=== PATIENT | female | born 1965 | race Caucasian/White ===

== ENCOUNTER 2017-12-01 08:13 | Day surgery (SDC) | END 2017-12-01 13:35 | disposition home or self-care (01) ==

== ENCOUNTER 2018-12-29 22:20 | Emergency (ER) | payer OTHER ==
[~2018-12-29] VITALS: Wt 87.2 kg
[~2018-12-29 22:20] MED LIST: HYDR25TA6 PO
[2018-12-29 22:22] VITALS: BP 120/58
[2018-12-30] MEDS ORDERED: ALBUTEROL 0.083% (NEB) 2.5 MG/3 ML AMP HHN STA (00:18)
--- NOTE | 2018-12-30 00:18 | ERD ---
ER Documentation Chief Complaint Chief Complaint COUGH, BODY ACHES, FEVER X'S 2 DAYS HPI This is a 53-year-old female presents emergency department with complaints of productive cough and fever for about 2 days. The son stated that he gave Tamiflu today. Son is insisting influenza test and chest x-ray. LMP: . Denies headache, head injury, loss of consciousness, dizziness, neck pain, neck stiffness, throat pain, difficulty swallowing, difficulty breathing lying flat, shoulder pain, chest pain, back pain, abdominal pain, nausea, vomiting, constipation, diarrhea, urinary symptoms, or possibility being , loss of bowel and bladder control, trauma, injury, falls, difficulty walking due to pain, numbness or tingling sensation, calf pain, recent travel, recent major surgery in the last 3 weeks, calf pain, recent long travel, recent exposure to any illness, recent antibiotic use in the last 3 months, fever, chills, seizures. Past medical history: Surgical history: Social: Denies smoking, use of alcoholic beverages, use of illegal drugs. ROS All systems reviewed and are negative except as per history of present illness. Medications Home Meds Active Scripts Acetaminophen* (Tylophen*) 500 Mg Capsule, 1 CAP PO Q6H PRN for PAIN AND OR ELEVATED TEMP, #20 CAP Prov:MYRTLESOPHIAMARK 12/30/18 Albuterol Sulfate* (Proair HFA*) 8.5 Gm Hfa.aer.ad, 2 PUFF INH Q4 PRN for WHEEZING, #1 INHALER Prov:CARMELODAVIDSONMARK 12/30/18 Benzonatate* (Tessalon Perle*) 100 Mg Capsule, 100 MG PO Q8H PRN for COUGH, #15 CAP Prov:MARK BARTHOLOMEW 12/30/18 Azithromycin* (Zithromax*) 250 Mg Tablet, 250 MG PO .ZPACK DIRECTED, #6 TAB TAKE 500 MG (2 TABS) THE FIRST DAY THEN 250 MG (1 TAB) DAYS 2-5 Prov:CARMELODAVIDSONMARK 12/30/18 Reported Medications Hydrochlorothiazide* (Hydrochlorothiazide*) 25 Mg Tab, 25 MG PO DAILY, #30 TAB 12/01/17 Allergies Allergies: Coded Allergies: No Known Allergy (Unverified , 12/01/17) PMhx/Soc History of Surgery: Yes (C SECTION X 1) Anesthesia Reaction: No Hx Neurological Disorder: No Hx Respiratory Disorders: No Hx Cardiac Disorders: Yes (HTN) Hx Psychiatric Problems: No Hx Miscellaneous Medical Probl: No Hx Alcohol Use: No Hx Substance Use: No Hx Tobacco Use: No Smoking Status: Never smoker Physical Exam Vitals Physical Exam Const: No acute distress Head: Atraumatic Eyes: Normal Conjunctiva ENT: Normal External Ears, Nose and Mouth. Bilateral ears: TMs are not erythematous. No bleeding. No tenderness. Nose: Midline. There is no frontal or maxillary sinus tenderness palpation. Throat: Uvula is midline in its place. Tonsils are +1 with redness but no exudates. Tolerating secretions. Patent airway. Speaks full increase sentences. No tripoding. Neck: Full range of motion. No meningismus. No nuchal rigidity. No signs of meningeal irritation. Resp: No accessory muscle use in breathing. Mild wheezing bilaterally. Cardio: Regular rate and rhythm, no murmurs Abd: Soft, non tender, non distended. Normal bowel sounds Skin: No petechiae or rashes Back: No midline or flank tenderness Ext: No cyanosis, or edema Neur: Awake and alert. No neurological deficit. Psych: Normal Mood and Affect Results 24 hrs Current Medications Medications Dose Sig/Lali Start Time Status Last (Trade) Ordered Route PRN Stop Time Admin Dose Reason Admin Albuterol 5 mg ONCE STAT 12/30/18 DC 12/30/18 (Proventil HHN 00:18 00:47 0.083% (Neb)) 12/30/18 00:20 Ipratropium 0.5 mg ONCE ONCE 12/30/18 DC 12/30/18 [place] [facility] 00:30 00:47 (Atrovent 12/30/18 00:31 0.02% (Neb)) Procedures/MDM Diagnostic tests: Influenza a and B: Negative for influenza A. Negative for influenza B. Chest x-ray: Negative for influenza A. Negative for influenza B. Treatment: Albuterol and Atrovent breathing treatment. Re-evaluation: Respirations even and unlabored. No accessory muscle use in breathing. Lungs are clear to auscultation. Speaks full and clear sentences. No tripoding. No signs of bronchospasm. Patient and her son stated that they are comfortable going home. Differential diagnosis I have low suspicion for sepsis, meningitis, peritonsillar abscess, mastoiditis, bronchospasm, pneumonia, severe dehydration. Final diagnosis: Flulike symptoms. Bronchitis. Prescription: Tessalon Perles. Pro-air. Azithromycin. Tylenol. Follow-up with PCP in the next 24-48 hours. Come back here in the emergency department for any new symptoms or any worsening symptoms. All questions and concerns were answered. Patient and family members verbalized understanding and agreed with plan of care. Hemodynamically stable on discharge. Departure Diagnosis: Primary Impression: Influenza-like symptoms Additional Impression: Bronchitis Condition: Stable Additional Instructions: Follow-up with PCP in the next 24-48 hours. Come back here in the emergency department for any new symptoms or any worsening symptoms. MARK BARTHOLOMEW Dec 30, 2018 00:18
[2018-12-30] MEDS ORDERED: IPRATROPIUM (NEB) 0.5 MG/2.5 ML AMP HHN ONE (00:30)
[2018-12-30 01:39] VITALS: PULSE 77; RESP 20
[2018-12-30] MEDS ORDERED: BENZ-6 PO (02:33)
[2018-12-30] MEDS ORDERED: AZIT250T PO (02:33)
[2018-12-30] MEDS ORDERED: ALBU8.5H8 INH (02:34)
[2018-12-30] MEDS ORDERED: ACET500C5 PO (02:34)
== END 2018-12-30 02:55 | disposition home or self-care (01) ==
LOC: FTE 22:20
DX: J11.1 Influenza due to unidentified influenza virus with other respiratory manifestations (principal); I10 Essential (primary) hypertension; J40 Bronchitis, not specified as acute or chronic
CPT/HCPCS: 71046; 87400; 94664; Z7610